=== PATIENT | female | born 1985 | race Two or more races ===

== ENCOUNTER 2018-09-09 10:06 | Inpatient (IN) | payer MEDICAID ==
[2018-09-09] MEDS ORDERED: OXYTOCIN 10 UNIT/ML VIAL IM ONE (10:20)
[2018-09-09] MEDS ORDERED: HYDROCORTISONE 1% CREAM 28 GM TUBE PR PRN (10:54)
[2018-09-09 11:51] LABS: BASOPHILS % (AUTO) 0.6 %; EOSINOPHILS # (AUTO) 0.1 10^3/uL (0.0-0.7); HGB - HEMOGLOBIN 11.9 g/dL (12.0-16.0); LYMPHOCYTES # (AUTO) 1.2 10^3/uL (1.5-3.5); LYMPHOCYTES % (AUTO) 14.3 %; MEAN CORPUSCULAR HEMOGLOBIN 30.4 pg (27.0-31.0); MEAN CORPUSCULAR HGB CONC 34.5 g/dL (32.0-36.0); MEAN CORPUSCULAR VOLUME 88.1 fL (81.0-99.0); MEAN PLATELET VOLUME 8.3 fL (7.9-10.8); MONOCYTES # (AUTO) 0.7 10^3/uL (0.0-1.0); MONOCYTES % (AUTO) 7.6 %; NEUTROPHILS # (AUTO) 6.7 10^3/uL (1.5-6.6); NEUTROPHILS % (AUTO) 76.5 %; PLT - PLATELET COUNT 253 10^3/uL (130-450); RED BLOOD COUNT 3.93 10^6/uL (4.20-5.40); RED CELL DISTRIBUTION WIDTH 13.4 % (12.0-15.0); WHITE BLOOD COUNT 8.7 x10^3/uL (4.8-10.8)
[2018-09-09] MEDS: ACETAMINOPHEN 500 MG TABLET PO SCH ×2 (13:58→21:57)
[2018-09-09] MEDS: IBUPROFEN 600 MG TABLET PO SCH ×2 (13:59→19:56)
--- NOTE | 2018-09-09 15:35 | DELIVERY NOTE ---
Delivery Note - Labor Labor: positive: Spontaneous, Other (Fragmented and incomplete obstetric care; GBS bacteruria; rapid delivery in progress) - Infant Delivery Method Infant Delivery Method: positive: Spontaneous vaginal delivery (Rapid second stage of labor) - Presentation Presentation: positive: Vertex - Nuchal Cord Nuchal Cord: positive: None - Anesthetic Anesthetic Type: - Amniotic Fluid Description Amniotic Fluid Description: positive: Clear - Episiotomy Type Episiotomy Type: positive: None - Laceration Laceration: positive: None - Delivery Outcome Delivery Outcome: positive: Livebirth - [place]: positive: Placed in direct skin contact with mother, Bulb syringe, Stimulated, Warmed [place] sex: positive: Female ( weight =7 pounds 5.2 ounces; Apgars 9/9) - Cord Cord: positive: 3 vessels - Placenta Placenta: positive: Intact (Grade 2 without evidence of abruption or infection) - Estimated Blood Loss Estimated Blood Loss (in cc): 250 - Delivery Comments (Free Text/Narrative) Delivery Comments (Free Text/Narrative): Predelivery diagnosis; apparent term , fragmented and incomplete obstetric care, GBS bacteria, grand multipara with rapid delivery Postdelivery diagnosis: Same as above workup ongoing 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 Leonard is a 33-year-old grand multipara who dropped into L&D during the second stage of labor. She had a small card from a [place] clinic that had some basic labs. She had not had any visit since 29 weeks. She states she had a initial dating ultrasound however this was not recorded. Patient arrived unannounced and was in the advanced stages of labor. Initial nursing check was complete and +2 station with involuntary pushing. I was called from the office and came immediately. Approximately 30 seconds before delivery membranes ruptured with clear fluid and the labor further accelerated. From the time of presentation to delivery was 3.5 minutes according to the EFM tracing. I entered the room & gloved as the patient crowned. Cora Valenzuela and Shirlene Ribeiro RN were at the bedside stabilizing the peritoneum. The delivery was done as a team. Delivery was rapid without any shoulder difficulty. Cord was doubly clamped and transected. Cord cord blood sample was taken. There was no cord involvement noted. Placenta was delivered spontaneously intact. Uterus responded well to massage and 10 units of IM Pitocin. Total blood loss was 250. Female reproductive tract was inspected. There were no vulvar lesions or wounds. The vagina had evidence of prior deep lacerations and mismatch of the hymen. There were no fresh wounds. Cervix was visualized intact. Mother and child bonded well. Post delivery physical examination was done. Obstetric labs and TB testing were ordered. Patient is known to be positive GBS bacteria and therefore GBS positive.
[2018-09-09 16:33] LABS: BILIRUBIN,URINE NEGATIVE (NEGATIVE); GLUCOSE, URINE (UA) NEGATIVE (NEGATIVE); KETONES,URINE (UA) NEGATIVE (NEGATIVE); LEUKOCYTE ESTERASE, URINE NEGATIVE (NEGATIVE); NITRITE,URINE NEGATIVE (NEGATIVE); OCCULT BLOOD,URINE LARGE (NEGATIVE); PH,URINE 7.5 PH (5.0-7.5); PROTEIN,URINE 30 mg/dL (NEGATIVE); UROBILINOGEN,URINE 0.2 (NORMAL) E.U./dL (NORMAL)
[2018-09-09 16:34] LABS: BACTERIA,URINE None Seen /HPF (None Seen); CLARITY,URINE BLOODY (CLEAR); RBC,URINE TNTC /HPF (0-5); SQUAMOUS EPITHELIAL CELL,UR NONE SEEN (<= Few)
[2018-09-09] MEDS ORDERED: OXYTOCIN 10 UNIT/ML VIAL ONE (16:38)
[2018-09-09] MEDS: DOCUSATE SODIUM 100 MG CAPSULE PO SCH (20:35)
--- NOTE | 2018-09-09 20:46 | DELIVERY NOTE ---
Delivery Note - Labor Labor: positive: Spontaneous - Delivery Method Delivery Method: positive: Vacuum assist - Cervical Ripening Method Cervical Ripening Method: positive: Misoprostil - Presentation Presentation: positive: Vertex, ROP - right occiput posterior - Nuchal Cord Nuchal Cord: positive: None - Anesthetic Anesthetic: positive: Lidocaine - 1% plain Volume: positive: Other (25 cc) - Amniotic Fluid Description Amniotic Fluid Description: positive: Clear - Vacuum Use Indication for Vacuum Use: positive: Suspicion of immediate or potential compromise Type of Vacuum Cup: positive: Cup: Rigid Number of pop-offs: 1 - Episiotomy Type Episiotomy Type: positive: None - Laceration Laceration: positive: 2nd degree - Suture Suture Type: positive: Vicryl Suture Size: positive: 2-0, 3-0 - Delivery Outcome Delivery Outcome: positive: Livebirth - [place] : positive: Placed in direct skin contact with mother, Suctioned, Bulb syringe, Warmer used [place] sex: positive: Male - Cord Cord: positive: 3 vessels - Placenta Placenta: positive: Intact - Estimated Blood Loss Estimated Blood Loss (in cc): 400 - Post Delivery Events Post Delivery Events: positive: No post delivery events
--- NOTE | 2018-09-10 01:22 | HISTORY & PHYSICAL EXAMINATION ---
DATE OF SERVICE: 09/09/2018 Physician: Torrye Lorenzana MD DIAGNOSIS: Drop-in delivery, with fragmented care, GBS positive urine, rapid delivery. HISTORY OF PRESENT ILLNESS: This evaluation was done immediately after delivery with family member doing Uzbek translation. Patient is a 33-year-old Kuwaiti, 6, para 5-0-0-5 woman who presented to labor and delivery in active labor, pushing and delivered shortly after. Reference delivery note. She denies rupture of membranes; they ruptured shortly before delivery with clear fluid. She denies signs or symptoms consistent with -induced hypertension. She has had no recent fevers, chills or illness. She had some care at the [facility]. LMP is 12/14/2017, yielding EDC of 09/20/2018. She states that there was an ultrasound done earlier in her . Thirteen-week ultrasound yielded an EDC of 09/21/2018. BASIC LABORATORY STUDIES: Blood type O positive, antibody screen negative, hepatitis B surface antigen negative, RPR negative, HIV negative, rubella immune. Baseline hemoglobin 12.3 . Glycosylated hemoglobin 5.5. Urine culture positive for GBS. GC and chlamydia negative. Last encounter was at 29 weeks. At that time, GBS-positive bacteria was found which was treated with amoxicillin. PAST MEDICAL HISTORY: Patient denies chronic disease history such as diabetes, hypertension. She denies tuberculosis. ALLERGIES: NO KNOWN DRUG ALLERGIES. MEDICATIONS: vitamins. SOCIAL HISTORY: Difficult to communicate. Uncertain what family status is. Denies drug, tobacco or alcohol use. FAMILY HISTORY: Denies malformation or inheritable disease. REVIEW OF SYSTEMS GENERAL: No recent fevers, chills or night sweats. HEENT: Negative. CARDIAC: Negative. PULMONARY: Negative. GASTROINTESTINAL: Negative. GENITOURINARY: Negative. MUSCULOSKELETAL: Negative. NEUROLOGIC: Negative. PSYCHOLOGIC: Negative. PHYSICAL EXAMINATION GENERAL: Patient just delivered and is still recovering. Alert, oriented, cooperative. VITAL SIGNS: Temperature 98.1, pulse 64, blood pressure 109/58, 100/64, respiratory rate between 15 and 18, pulse oximetry 99. HEENT: Dentition in adequate repair. NECK: Supple. No thyromegaly. LUNGS: Clear to auscultation. CARDIAC: Regular. No murmur. No gallop. BREASTS: Everted nipples. No evident masses. Now nursing well. ABDOMEN: Truncal obesity. No hepatosplenomegaly. GENITOURINARY: Uterus 18- to 17-week size, firm, nontender. Pelvic exam: External genitalia, no lesions. Vagina: Obvious prior tears with malunion of hymenal ring; no current tears. Lochia rubra. Cervix visualized, intact. EXTREMITIES: Multiple varicosities. No calf tenderness. Normal range of motion. NEUROLOGIC: Grossly intact. Patellar reflexes equal. LABORATORY DATA: Baseline hemoglobin 11.9 , white count 8.7, platelets 253. labs drawn, TB test drawn. ASSESSMENT: Patient is a drop-in delivery and has a language barrier. Basic facts of her medical history have been ascertained. Some uncertainty as to living situation and welfare of prior children. Patient will require social work consultation. PLAN 1. Repeat a CBC in the morning. 2. business services vice president consultation. 3. Supportive care. 4. Positive GBS status; therefore, longer hospitalization is anticipated. Discussed the case with Dr. Olivas of Pediatrics. TD: 09/09/2018 19:35 MTDD
[2018-09-10] MEDS: IBUPROFEN 600 MG TABLET PO SCH ×5 (02:12→22:42)
[2018-09-10] MEDS: ACETAMINOPHEN 500 MG TABLET PO SCH ×3 (05:48→19:51)
[2018-09-10] MEDS: DOCUSATE SODIUM 100 MG CAPSULE PO SCH ×2 (08:17→19:51)
[2018-09-10 09:05] LABS: BASOPHILS % (AUTO) 0.6 %; EOSINOPHILS # (AUTO) 0.2 10^3/uL (0.0-0.7); EOSINOPHILS % (AUTO) 2.3 %; HGB - HEMOGLOBIN 10.5 g/dL (12.0-16.0); LYMPHOCYTES # (AUTO) 1.9 10^3/uL (1.5-3.5); LYMPHOCYTES % (AUTO) 25.2 %; MEAN CORPUSCULAR HEMOGLOBIN 30.3 pg (27.0-31.0); MEAN CORPUSCULAR HGB CONC 34.3 g/dL (32.0-36.0); MEAN CORPUSCULAR VOLUME 88.4 fL (81.0-99.0); MEAN PLATELET VOLUME 7.6 fL (7.9-10.8); MONOCYTES # (AUTO) 0.5 10^3/uL (0.0-1.0); MONOCYTES % (AUTO) 6.7 %; NEUTROPHILS % (AUTO) 65.2 %; PLT - PLATELET COUNT 229 10^3/uL (130-450); RED BLOOD COUNT 3.48 10^6/uL (4.20-5.40); RED CELL DISTRIBUTION WIDTH 13.9 % (12.0-15.0); WHITE BLOOD COUNT 7.7 x10^3/uL (4.8-10.8)
--- NOTE | 2018-09-10 12:09 | PROVIDER PROGRESS NOTE ---
Subjective - Prog Note Date Prog Note Date: 09/10/18 Prog Note Time: 08:15 - Subjective Pt reports feeling: Improved Subjective: Patient communicates through family member translating. She states she has no fevers chills but notes uterine cramping. Her pain is controlled. No excessive bleeding reported. Objective - Vital Signs/Intake & Output Vital Signs: Vital Signs x48h Temp Pulse Resp BP BP Pulse Ox 09/10/18 10:50 98.6 F 73 18 110/58 L 96 09/10/18 08:15 98.1 F 67 18 127/68 98 09/10/18 04:57 98.4 F 67 22 112/71 98 Intake & Output: Intake & Output 09/07/18 09/08/18 09/09/18 09/10/18 23:59 23:59 23:59 23:59 Output Total 1400 Balance -1400 - Lab Results Fish Bones: 09/10/18 09:00 Other Labs: Lab Results x24hrs 09/10/18 09/09/18 09/09/18 Range/Units 09:00 16:12 12:00 WBC 7.7 (4.8-10.8) x10^3/uL RBC 3.48 L (4.20-5.40) 10^6/uL Hgb 10.5 L (12.0-16.0) g/dL Hct 30.7 L (37.0-47.0) % MCV 88.4 (81.0-99.0) fL MCH 30.3 (27.0-31.0) pg MCHC 34.3 (32.0-36.0) g/dL RDW 13.9 (12.0-15.0) % Plt Count 229 (130-450) 10^3/uL MPV 7.6 L (7.9-10.8) fL Neut # (Auto) 5.0 (1.5-6.6) 10^3/uL Lymph # (Auto) 1.9 (1.5-3.5) 10^3/uL [place] # (Auto) 0.5 (0.0-1.0) 10^3/uL Eos # (Auto) 0.2 (0.0-0.7) 10^3/uL Baso # (Auto) 0.0 (0.0-0.1) 10^3/uL Absolute Nucleated RBC 0.00 x10^3/uL Nucleated RBC % 0.0 /100WBC Urine Color RED/BLOODY Urine Clarity BLOODY (CLEAR) Urine pH 7.5 (5.0-7.5) PH Ur Specific [place] 1.020 (1.002-1.030) Urine Protein 30 H (NEGATIVE) mg/dL Urine Glucose (UA) NEGATIVE (NEGATIVE) mg/dL Urine Ketones NEGATIVE (NEGATIVE) mg/dL Urine Occult Blood LARGE H (NEGATIVE) Urine Nitrite NEGATIVE (NEGATIVE) Urine Bilirubin NEGATIVE (NEGATIVE) Urine Urobilinogen 0.2 (NORMAL) (NORMAL) E.U./dL Ur Leukocyte Esterase NEGATIVE (NEGATIVE) Urine RBC TNTC H (0-5) /HPF Urine WBC 0-3 (0-5) /HPF Ur Squamous Epith Cells NONE SEEN (<= Few) Urine Bacteria None Seen (None Seen) /HPF Ur Microscopic Review INDICATED Urine Culture Comments NOT INDICATED Rubella IgG Antibody IU/mL Blood Type Blood Type Recheck O POSITIVE Antibody Screen 09/09/18 09/09/18 Range/Units 11:38 11:38 WBC (4.8-10.8) x10^3/uL RBC (4.20-5.40) 10^6/uL Hgb (12.0-16.0) g/dL Hct (37.0-47.0) % MCV (81.0-99.0) fL MCH (27.0-31.0) pg MCHC (32.0-36.0) g/dL RDW (12.0-15.0) % Plt Count (130-450) 10^3/uL MPV (7.9-10.8) fL Neut # (Auto) (1.5-6.6) 10^3/uL Lymph # (Auto) (1.5-3.5) 10^3/uL [place] # (Auto) (0.0-1.0) 10^3/uL Eos # (Auto) (0.0-0.7) 10^3/uL Baso # (Auto) (0.0-0.1) 10^3/uL Absolute Nucleated RBC x10^3/uL Nucleated RBC % /100WBC Urine Color Urine Clarity (CLEAR) Urine pH (5.0-7.5) PH Ur Specific [place] (1.002-1.030) Urine Protein (NEGATIVE) mg/dL Urine Glucose (UA) (NEGATIVE) mg/dL Urine Ketones (NEGATIVE) mg/dL Urine Occult Blood (NEGATIVE) Urine Nitrite (NEGATIVE) Urine Bilirubin (NEGATIVE) Urine Urobilinogen (NORMAL) E.U./dL Ur Leukocyte Esterase (NEGATIVE) Urine RBC (0-5) /HPF Urine WBC (0-5) /HPF Ur Squamous Epith Cells (<= Few) Urine Bacteria (None Seen) /HPF Ur Microscopic Review Urine Culture Comments Rubella IgG Antibody 119.9 IU/mL Blood Type O POSITIVE Blood Type Recheck Antibody Screen NEGATIVE Physical Exam - Physical Exam General: positive: No acute distress, Alert HEENT: positive: Moist mucous membranes Neck: positive: Supple w/out meningeal sx Abdomen: positive: Normal Bowel sounds, Other (No tenderness noted) Female : positive: Vaginal Bleeding (Lochia rubra not on file reported by nursing), Enlarged uterus (Uterus enlarged to 17 weeks nontender) Extremities: positive: No pedal edema, Other (Varicosities) Skin: positive: Warm and dry Assessment/Plan - Assessment/Plan Assessment: Patient recovering as expected from 6 delivery. No obstetrical complications needed. Need to explore her state of mood more thoroughly with a director medical affairs. shared services and outsourcing manager consultation appreciated Plan: GBS positive not treated in labor requires a 48 hours of observation. Pediatrics does not intend to discharge infant until tomorrow. Will continue our social workup.
[2018-09-10 12:53] LABS: HEPATITIS B SURFACE ANTIGEN NON-REACTIVE (NON-REACTIVE)
[2018-09-10 14:21] LABS: HIV AG/AB 4TH GEN NON-REACTIVE (NON-REACTIVE)
[2018-09-11] MEDS: IBUPROFEN 600 MG TABLET PO SCH ×2 (05:04→08:48)
[2018-09-11] MEDS: ACETAMINOPHEN 500 MG TABLET PO SCH ×2 (05:04→08:48)
--- NOTE | 2018-09-11 06:22 | DISCHARGE SUMMARY ---
Physician: Torrey Lorenzana MD DATE OF ADMISSION: 09/09/2018 DATE OF DISCHARGE: DIAGNOSES 1. Drop in delivery with fragmented care. 2. GBS bacteria. 3. Rapid delivery. PROCEDURE: Vaginal delivery over intact perineum of a living female infant. COMPLICATIONS: None. HISTORY: Milena Pineda is a 33-year-old Guinean 6, para 6,0,0,6 woman (now), who pr esented to labor and delivery in active labor pushing and delivered the shortly thereafter. T he patient had some care in the [facility], but her last visit was at 29 weeks. She ini tially moved to [place] and then finally to [facility]. She had not accessed care. BASELINE LABS: Blood type O positive, antibody screen negative, hepatitis B surface antigen negative , RPR negative, HIV negative, rubella immune, glycosylated hemoglobin 5.5, normal. Urine culture pos itive for GBS. GC and chlamydia negative. Initial due date confirmed by ultrasound, her first trimester ultrasound. Anticipated due date is . HOSPITAL COURSE: The patient presented to labor and delivery and within 3 minutes, delivered. Rojas garcia was without laceration and uneventful. Reference delivery note. Total blood loss was 250. Moth er and child and father all bonded together well. Post-delivery, social work helped ascertain the patient was employed, had a stable living situation, and facilitated her accessing Mail Superintendent. Due to the GBS positive urine without prophylactic an tibiotics, the patient was obligated to stay for 48 hours. Mother nursed well. On hospital day #2, patient and were ready for discharge. Post-delivery instructions were giv en in Latvian. The patient will followup in 2 weeks at the [facility]. DISCHARGE MEDICATIONS 1. vitamins and iron. 2. Motrin [id number] for pain Predelivery diagnosis was 11.9. Post-delivery 10.5, white count 8.7 and 7.7, respectively. This is a draft, and I will verify this at the time of discharge. TD: 09/10/2018 19:08
--- NOTE | 2018-09-11 07:39 | Discharge Plan ---
Discharge Plan Disposition: 01 Home, Self Care Condition: Good Diet: Regular Activity Restrictions: Activity as Tolerated Shower Restrictions: No Driving Restrictions: No Weight Bearing: Full Weight No Smoking: If you smoke, Please STOP! Call for help. Follow-up with: Torrey Lorenzana MD [Provider Admit Priv/Credential] -
[2018-09-11] MEDS: DOCUSATE SODIUM 100 MG CAPSULE PO SCH (08:48)
[2018-09-11 17:16] VITALS: BP 110/60
--- NOTE | 2018-09-11 19:00 | Labor Flowsheet ---
Labor Flowsheet Datetime Report Generated by CPN: 09/11/2018 19:00 Datetime: 09/11/2018 08:45 VITAL SIGNS NBP Sys/Susy/Mean (mmHg): 106 : 68 : 77 Pulse: 89 Datetime: 09/11/2018 03:59 SpO2 (%): 97 Datetime: 09/09/2018 16:55 VAGINAL EXAM Membranes Ruptured Date/Time: 09/09/2018 10:19 Membranes Rupture Method: Spontaneous Amniotic Fluid Color: Heavy Meconium Amniotic Fluid Amount: Moderate Amniotic Fluid Odor: Normal MEDICATIONS Cervical Ripening Agents Other: none
== END 2018-09-11 16:45 | disposition home or self-care (01) | DRG 807 ==
LOC: WFO 10:06 → FBP 10:13 → EDBD 10:19 → FBP 10:19 → WFO 10:22
PROVIDERS: ADMIT Obstetrics & Gynecology; ATTEND Obstetrics & Gynecology
PROC: 10E0XZZ Delivery of Products of Conception, External Approach (ICD-10-PCS; principal; 2018-09-09)
DX: O99.820 Streptococcus B carrier state complicating pregnancy (principal); Z37.0 Single live birth; O62.3 Precipitate labor; O22.03 Varicose veins of lower extremity in pregnancy, third trimester; Z3A.38 38 weeks gestation of pregnancy
CPT/HCPCS: 36415; 81001; 81003; 81599; 85025; 86762; 86780; 86850; 86900; 86901; 87081; 87086; 87340; 87389; 87491; 87591; 99211

== ENCOUNTER 2019-05-30 15:45 | Outpatient (CLI) | payer MEDICAID ==
[2019-05-30 20:54] LABS: CANDIDA GROUP DNA POSITIVE (NEGATIVE); CANDIDA KRUSEI DNA NEGATIVE (NEGATIVE); TRICHOMONAS VAGINALIS DNA NEGATIVE (NEGATIVE)
== END 2019-05-30 23:59 | disposition home or self-care (01) ==
LOC: LAB.R 15:45
PROVIDERS: ATTEND Obstetrics & Gynecology
DX: Z34.82 Encounter for supervision of other normal pregnancy, second trimester (principal)
CPT/HCPCS: 87661; 87801

== ENCOUNTER 2019-06-02 10:22 | Outpatient (CLI) | payer MEDICAID ==
[2019-06-02 12:05] LABS: BASOPHILS % (AUTO) 0.6 %; EOSINOPHILS # (AUTO) 0.2 10^3/uL (0.0-0.7); EOSINOPHILS % (AUTO) 2.8 %; HGB - HEMOGLOBIN 11.5 g/dL (12.0-16.0); LYMPHOCYTES # (AUTO) 1.2 10^3/uL (1.5-3.5); MEAN CORPUSCULAR HGB CONC 33.2 g/dL (32.0-36.0); MEAN CORPUSCULAR VOLUME 93.3 fL (81.0-99.0); MEAN PLATELET VOLUME 9.1 fL (7.9-10.8); MONOCYTES # (AUTO) 0.5 10^3/uL (0.0-1.0); NEUTROPHILS # (AUTO) 5.2 10^3/uL (1.5-6.6); NEUTROPHILS % (AUTO) 71.8 %; PLT - PLATELET COUNT 282 10^3/uL (130-450); RED BLOOD COUNT 3.71 10^6/uL (4.20-5.40); WHITE BLOOD COUNT 7.2 x10^3/uL (4.8-10.8)
[2019-06-03 12:08] LABS: HEPATITIS C ANTIBODY NON-REACTIVE (NON-REACTIVE)
[2019-06-03 14:42] LABS: HIV AG/AB 4TH GEN NON-REACTIVE (NON-REACTIVE)
[2019-06-03 15:36] LABS: HEPATITIS B SURFACE ANTIGEN NON-REACTIVE (NON-REACTIVE)
== END 2019-06-02 10:23 | disposition home or self-care (01) ==
LOC: LAB 10:22
PROVIDERS: ATTEND Obstetrics & Gynecology
DX: Z34.82 Encounter for supervision of other normal pregnancy, second trimester (principal)
CPT/HCPCS: 36415; 81599; 82950; 85025; 86592; 86762; 86803; 86850; 86900; 86901; 87340; 87389

== ENCOUNTER 2019-06-06 12:54 | Outpatient (CLI) | payer MEDICAID ==
--- NOTE | 2019-06-06 16:26 | Ultrasound Report ---
Reason: SUPER OF NORMAL Procedure Date: 06/06/2019 Accession Number: [id number] / [id number] Procedure: US - OB Detailed Eval CPT Code: FULL RESULT: EXAM: COMPLETE OBSTETRICAL ULTRASOUND EXAM DATE: 06/06/2019 03:41 PM. CLINICAL HISTORY: anatomic survey. COMPARISON: None. TECHNIQUE: Real-time sonographic evaluation of the fetus performed by the teller head. Multiple financial representative static images were saved for review. Transabdominal imaging only. DATING: Established EGA 28 weeks 0 days with LANCE 08/29/2019 based on LMP. EGA 28 weeks 0 days with LANCE 08/29/2019 based on referring physician provided. EGA 28 weeks 0 days with LANCE 08/29/2019 based on the current ultrasound. GENERAL EVALUATION Hernández . Cardiac activity: 145 bpm. movement: Visualized. Presentation: Variable. Placenta: Anterior position. No evidence for previa. Umbilical cord: 3 vessel cord. Central placental cord origin. Amniotic fluid: Subjectively normal. MVP 7.3 cm. BIOMETRY Bi-Parietal Diameter (BPD): 7.0 cm, 28 weeks 2 days Head Circumference (HC): 25.7 cm, 27 weeks 6 days Abdominal Circumference (AC): 23.7 cm, 28 weeks 0 days Femur Length (FL): 5.2 cm, 28 weeks 0 days Estimated Weight: 1163 g, 38th percentile for 27 weeks 3 days. ANATOMY The intracranial structures, profile, face/nose/lips, spine, 4 chamber heart and right outflow tracts, stomach, abdominal wall and cord insertion, diaphragm, kidneys, bladder, and extremities were visualized and demonstrate no abnormality. The left ventricular outflow tract was not visualized. MATERNAL STRUCTURES Uterus: Unremarkable. Cervix: Long and closed. Transabdominal length 4.3 cm. Right ovary/adnexa: Unremarkable. Left ovary/adnexa: Unremarkable. Free fluid: None. IMPRESSION: 1. Hernández live intrauterine with gestational age 28 weeks 0 days based on current ultrasound. 2. Estimated weight is within expected limits for assigned dating. 3. The left ventricular outflow tract is not visualized. Consider follow-up ultrasound. Otherwise, normal anatomic abnormalities are identified. RADIA
== END 2019-06-06 12:55 | disposition home or self-care (01) ==
LOC: DI 12:54
PROVIDERS: ATTEND Obstetrics & Gynecology
DX: Z34.82 Encounter for supervision of other normal pregnancy, second trimester (principal)
CPT/HCPCS: 76811

== ENCOUNTER 2019-07-15 15:22 | Outpatient (CLI) | payer MEDICAID ==
[2019-07-15 16:58] LABS: HGB - HEMOGLOBIN 10.8 g/dL (12.0-16.0); MEAN CORPUSCULAR HEMOGLOBIN 29.9 pg (27.0-31.0); MEAN CORPUSCULAR HGB CONC 32.6 g/dL (32.0-36.0); MEAN CORPUSCULAR VOLUME 91.7 fL (81.0-99.0); MEAN PLATELET VOLUME 9.2 fL (7.9-10.8); RED BLOOD COUNT 3.61 10^6/uL (4.20-5.40); RED CELL DISTRIBUTION WIDTH 12.7 % (12.0-15.0); WHITE BLOOD COUNT 7.1 x10^3/uL (4.8-10.8)
[2019-07-15 17:16] LABS: ALBUMIN 2.9 g/dL (3.2-5.5); BILIRUBIN,DIRECT 0.1 mg/dL (0.1-0.5); BILIRUBIN,TOTAL 0.4 mg/dL (0.2-1.0); TOTAL PROTEIN 6.8 g/dL (6.7-8.2)
== END 2019-07-15 15:23 | disposition home or self-care (01) ==
LOC: LAB 15:22
PROVIDERS: ATTEND Obstetrics & Gynecology
DX: Z34.83 Encounter for supervision of other normal pregnancy, third trimester (principal)
CPT/HCPCS: 36415; 80076; 82950; 85027

== ENCOUNTER 2019-08-08 15:32 | Outpatient (CLI) | payer MEDICAID | END 2019-08-08 23:59 | disposition home or self-care (01) | LOC: LAB.R 15:32 | PROVIDERS: ATTEND Obstetrics & Gynecology | DX: Z34.83 Encounter for supervision of other normal pregnancy, third trimester (principal) | CPT/HCPCS: 87797 ==

== ENCOUNTER 2019-08-27 11:14 | Inpatient (IN) | payer MEDICAID ==
[2019-08-27] MEDS ORDERED: FAMOTIDINE 20 MG TABLET PO SCH (12:00)
[2019-08-27] MEDS ORDERED: MAG HYDROX/AL HYDROX/SIMETH 30 ML UDC PO SCH (12:00)
[2019-08-27] MEDS ORDERED: ACETAMINOPHEN 500 MG TABLET PO SCH (12:00)
[2019-08-27 12:15] LABS: BASOPHILS % (AUTO) 0.4 %; EOSINOPHILS # (AUTO) 0.1 10^3/uL (0.0-0.7); EOSINOPHILS % (AUTO) 1.9 %; HGB - HEMOGLOBIN 11.1 g/dL (12.0-16.0); LYMPHOCYTES # (AUTO) 1.4 10^3/uL (1.5-3.5); LYMPHOCYTES % (AUTO) 19.1 %; MEAN CORPUSCULAR HEMOGLOBIN 28.2 pg (27.0-31.0); MEAN CORPUSCULAR HGB CONC 32.6 g/dL (32.0-36.0); MEAN CORPUSCULAR VOLUME 86.5 fL (81.0-99.0); MEAN PLATELET VOLUME 10.7 fL (7.9-10.8); MONOCYTES # (AUTO) 0.6 10^3/uL (0.0-1.0); MONOCYTES % (AUTO) 8.1 %; NEUTROPHILS # (AUTO) 5.1 10^3/uL (1.5-6.6); NEUTROPHILS % (AUTO) 70.1 %; PLT - PLATELET COUNT 224 10^3/uL (130-450); RED BLOOD COUNT 3.93 10^6/uL (4.20-5.40); RED CELL DISTRIBUTION WIDTH 12.9 % (12.0-15.0); WHITE BLOOD COUNT 7.2 x10^3/uL (4.8-10.8)
[2019-08-27 12:27] LABS: CREATININE,URINE 127.7 mg/dL
[2019-08-27 12:28] LABS: ALBUMIN 2.7 g/dL (3.2-5.5); ALBUMIN/GLOBULIN RATIO 0.7 (1.0-2.2); BILIRUBIN,TOTAL 0.4 mg/dL (0.2-1.0); CALCIUM 8.8 mg/dL (8.5-10.3); CREATININE 0.4 mg/dL (0.4-1.0); TOTAL PROTEIN 6.6 g/dL (6.7-8.2)
[2019-08-27] MEDS ORDERED: CARBOPROST TROMETHAMINE 250 MCG/ML AMP IM PRN (13:53)
[2019-08-27] MEDS ORDERED: ONDANSETRON 4 MG/2 ML VIAL IVP PRN (13:53)
[2019-08-27] MEDS ORDERED: OXYTOCIN/DEXTROSE 5 % 30 UNIT/500 ML BAG IV PRN (13:53)
[2019-08-27] MEDS ORDERED: miSOPROStoL 200 MCG TABLET PR PRN (13:53)
[2019-08-27] MEDS ORDERED: fentaNYL 100 MCG/2 ML VIAL IVP PRN (13:53)
[2019-08-27] MEDS ORDERED: SODIUM CHLORIDE FLUSH 0.9% 10 ML SYRINGE IVP PRN (13:53)
[2019-08-27] MEDS ORDERED: LACTATED RINGERS 1,000 ML IV SCH (14:00)
[2019-08-27] MEDS ORDERED: AMPICILLIN 2 GM in SODIUM CHLORIDE 0.9% MINIBAG 100 ML IV SCH (14:30)
[2019-08-27] MEDS ORDERED: MAGNESIUM SULFATE IN WATER 20 GM/500 ML IV.SOLN IV SCH (14:39)
[2019-08-27 15:03] LABS: RUPTURE OF MEMBRANES PLUS NEGATIVE (NEGATIVE)
[2019-08-27] MEDS: MAGNESIUM SULFATE 2 GRAM 2 GM/50 ML BAG IV SCH ×2 (16:43→17:18)
[2019-08-27] MEDS ORDERED: SODIUM CHLORIDE FLUSH 0.9% 10 ML SYRINGE IVP SCH (17:00)
[2019-08-27] MEDS ORDERED: OXYTOCIN/DEXTROSE 5 % 30 UNIT/500 ML BAG IV SCH (18:00)
[2019-08-27 18:29] LABS: TRICHOMONAS VAGINALIS DNA NEGATIVE (NEGATIVE)
[2019-08-27] MEDS: AMPICILLIN 1 GM in SODIUM CHLORIDE 0.9% MINIBAG 100 ML IV SCH ×2 (18:29→22:34)
--- NOTE | 2019-08-27 19:22 | HISTORY & PHYSICAL EXAMINATION ---
DATE OF SERVICE: 08/27/2019 Physician: Leia Cheek MD CHIEF COMPLAINT: Labor pains. HISTORY OF PRESENT ILLNESS: The patient has had labor pains since this morning that have been increa sing in frequency and severity. She feels like this is a real labor. She has had some leaking of "w ater" since yesterday around 4 p.m. It has been both white and clear. It started yesterday and had not happened prior than that. It was not copious. No bleeding and no green discharge. Good m ovement. The patient complains of a 7/10 intensity headache on her left side only. This is new for her. She does not typically get headaches, and she has never had a one-sided headache in the past. She compla ins of radiating pain down to her right leg and foot that feels "like a headache," and has been new i n the past day. She had visual changes yesterday when standing after taking a bath. Those look like stars. She has not had any visual changes since that time. She is also complaining of "chest pain, " but when asked to demonstrate where the pain she points to her epigastric area. She further clarif ied that there is no pain below the ribs. This pain has been mostly present with contractions and is also new for her. PAST MEDICAL HISTORY: Negative. PAST SURGICAL HISTORY: Negative. MEDICATIONS: None. The patient has not been taking vitamins, as she says that they were no t called in, but they were. ALLERGIES: NO KNOWN DRUG ALLERGIES. SOCIAL HISTORY: No tobacco, alcohol or drug use. The father of the baby is the father of this pregn kristen and also her most recent , which was uncomplicated. OBSTETRICAL HISTORY: The patient is a G6, P5-0-0-5. Her first was in 2002. All of her childr en have been in the 7-pound range. All has been uncomplicated. The most recent included a very rapid delivery. She denies any history of elevated blood pressures or preeclampsia w ith her prior pregnancies. Dating reveals an LANCE of 08/29/2019 by last menstrual period, consistent with a 28-week ultrasound. Anatomy was normal, but the LVOT was not well seen. Her placenta was ant erior. She had an AGA fetus at her anatomy scan at the 38th percentile). Labs include blood type O positive, rubella immune, group B strep positive. She has not had gonorrhea, chlamydia screening thi s , nor has she received a Pap. I do not believe that she has received Tdap or influenza va ccines during her . PHYSICAL EXAMINATION VITAL SIGNS: Blood pressure is normal in the 100s over 60s. Other vital signs normal. She is afebr ile. GENERAL: She is alert and smiles occasionally, making appropriate eye contact. She also grimaces in pain and has to lightly breathe through some of her contractions. HEART: Regular rate and rhythm without murmurs. LUNGS: Clear to auscultation bilaterally. ABDOMEN: Soft, nontender, nondistended. The fetus is appropriate for gestational age by [place]. Ultrasound reveals a fetus in vertex presen tation with a normal amount of fluid surrounding it. The external female genitalia is normal. The p erineal body is absent. The patient's introitus is gaping. The patient did have a bit of thin water y fluid in the vagina mixed with more opaque and clumpy discharge. This is most consistent with a ye ast infection, but could also be leaking of fluid. Sterile vaginal examination was 3-4 cm dilated, 5 0% effaced, -2 station, medium and posterior. There is no lower extremity edema. Reflexes were 2+ b ilateral patellar. NST is category 1. [place] is not picking up well. The patient grimaces with a con traction anywhere from every 2 minutes to every 8. ASSESSMENT AND PLAN 1. A 34-year-old G6, P5-0-0-5, at 39 weeks and 5 days by last menstrual period, consistent with a 28 -week ultrasound, who presents with labor. Her labor will be observed. If she requires augmentation , then it will be given. She is unsure of what kind medications she might want to do for pain contro l. 2. wellbeing is reassuring with a category 1 NST. The baby is vertex and average for gestatio nal age with a normal anatomy scan. 3. She is group B strep positive, and she will receive ampicillin prophylaxis for this. She HAS NO KNOWN DRUG ALLERGIES. 4. Gonorrhea and chlamydia unknown and those were collected and sent to the lab. 5. She has an unknown status of rupture of membranes, but I think it is most likely that she has yea st vaginitis and an intact bag. AROM plus test was sent to further evaluate. 6. I do not believe that she has received a Tdap or a flu vaccine this . We will offer tho se . Also, she will need a Pap when she presents . 7. The patient presented complaining of both labor pains, as well as a significant headache and uppe r abdominal pain. Due to these findings, CBC, CMP and [id number] ratio were sent. Her pl atelets were normal, as were her AST, ALT and creatinine. However, her [id number] ratio w as 1.0, which is clearly abnormal. She has no edema and normal reflexes. Her headache is rated at a 7/10, and her headache and abdominal pain seemed to be present only when she is having a contraction . She had visual changes yesterday associated with position change, which is normal. I do feel like is going to be safest to give her magnesium sulfate for seizure prophylaxis. Although her presentat ion for preeclampsia would be atypical, she is having significant neurologic symptoms and so we will prophylax her. If her headache goes away and she has an otherwise normal course, we will stop the magnesium shortly after delivery. If anything is not normal, then we will continue to magne sium sulfate therapy for 24 hours . She was advised not to get up without nursing assistan ce. We will do hourly mag checks and hourly ins and outs, as well as frequent blood pressures. Keyur nguyen, the patient has never had preeclampsia in the past, and her last was with the same fat her of the baby and was uncomplicated. However, she did not receive care during this pregna ncy and rapidly delivered after presentation to the hospital, so it is difficult to ascertain whether or not that was entirely healthy or not. TD: 08/27/2019 14:15
--- NOTE | 2019-08-27 21:09 | PROVIDER PROGRESS NOTE ---
Objective - Vital Signs/Intake & Output Intake & Output: Intake & Output 08/24/19 08/25/19 08/26/19 08/27/19 23:59 23:59 23:59 23:59 Intake Total 307.499 Balance 307.499 - Lab Results Fish Bones: 08/27/19 12:04 08/27/19 12:04 Other Labs: Lab Results x24hrs 08/27/19 08/27/19 08/27/19 Range/Units 13:45 13:45 12:04 WBC (4.8-10.8) x10^3/uL RBC (4.20-5.40) 10^6/uL Hgb (12.0-16.0) g/dL Hct (37.0-47.0) % MCV (81.0-99.0) fL MCH (27.0-31.0) pg MCHC (32.0-36.0) g/dL RDW (12.0-15.0) % Plt Count (130-450) 10^3/uL MPV (7.9-10.8) fL Neut # (Auto) (1.5-6.6) 10^3/uL Lymph # (Auto) (1.5-3.5) 10^3/uL [place] # (Auto) (0.0-1.0) 10^3/uL Eos # (Auto) (0.0-0.7) 10^3/uL Baso # (Auto) (0.0-0.1) 10^3/uL Absolute Nucleated RBC x10^3/uL Nucleated RBC % /100WBC Sodium 135 (135-145) mmol/L Potassium 3.8 (3.5-5.0) mmol/L Chloride 105 (101-111) mmol/L Carbon Dioxide 21 (21-32) mmol/L Anion Gap 9.0 (6-13) BUN 9 (6-20) mg/dL Creatinine 0.4 (0.4-1.0) mg/dL Estimated GFR (MDRD) 183 (>89) Glucose 91 (70-100) mg/dL Calcium 8.8 (8.5-10.3) mg/dL Total Bilirubin 0.4 (0.2-1.0) mg/dL AST 21 (10-42) IU/L ALT 15 (10-60) IU/L Alkaline Phosphatase 160 H (42-121) IU/L Total Protein 6.6 L (6.7-8.2) g/dL Albumin 2.7 L (3.2-5.5) g/dL Globulin 3.9 (2.1-4.2) g/dL Albumin/Globulin Ratio 0.7 L (1.0-2.2) Urine Creatinine mg/dL Ur Total Protein Timed mg/dL Protein/Creatinin Ratio (<=0.2) Membranes Rupture NEGATIVE (NEGATIVE) Chlam trachomat DNA PCR NEGATIVE (NEGATIVE) N.gonorrhoeae DNA (PCR) NEGATIVE (NEGATIVE) T. vaginalis (PCR) NEGATIVE (NEGATIVE) Blood Type Antibody Screen 08/27/19 08/27/19 08/27/19 Range/Units 12:04 12:04 11:55 WBC 7.2 (4.8-10.8) x10^3/uL RBC 3.93 L (4.20-5.40) 10^6/uL Hgb 11.1 L (12.0-16.0) g/dL Hct 34.0 L (37.0-47.0) % MCV 86.5 (81.0-99.0) fL MCH 28.2 (27.0-31.0) pg MCHC 32.6 (32.0-36.0) g/dL RDW 12.9 (12.0-15.0) % Plt Count 224 (130-450) 10^3/uL MPV 10.7 (7.9-10.8) fL Neut # (Auto) 5.1 (1.5-6.6) 10^3/uL Lymph # (Auto) 1.4 L (1.5-3.5) 10^3/uL [place] # (Auto) 0.6 (0.0-1.0) 10^3/uL Eos # (Auto) 0.1 (0.0-0.7) 10^3/uL Baso # (Auto) 0.0 (0.0-0.1) 10^3/uL Absolute Nucleated RBC 0.00 x10^3/uL Nucleated RBC % 0.0 /100WBC Sodium (135-145) mmol/L Potassium (3.5-5.0) mmol/L Chloride (101-111) mmol/L Carbon Dioxide (21-32) mmol/L Anion Gap (6-13) BUN (6-20) mg/dL Creatinine (0.4-1.0) mg/dL Estimated GFR (MDRD) (>89) Glucose (70-100) mg/dL Calcium (8.5-10.3) mg/dL Total Bilirubin (0.2-1.0) mg/dL AST (10-42) IU/L ALT (10-60) IU/L Alkaline Phosphatase (42-121) IU/L Total Protein (6.7-8.2) g/dL Albumin (3.2-5.5) g/dL Globulin (2.1-4.2) g/dL Albumin/Globulin Ratio (1.0-2.2) Urine Creatinine 127.7 mg/dL Ur Total Protein Timed 130 mg/dL Protein/Creatinin Ratio 1.0 H (<=0.2) Membranes Rupture (NEGATIVE) Chlam trachomat DNA PCR (NEGATIVE) N.gonorrhoeae DNA (PCR) (NEGATIVE) T. vaginalis (PCR) (NEGATIVE) Blood Type O POSITIVE Antibody Screen NEGATIVE Assessment/Plan - Problem List (1) Active labor at term Impression: Headache and upper abdominal pain are completely gone. Ate 2 large meals. BPs 100/60s. Category 1 tracing, toco q10min. Pitocin augmentation started due to infrequent UCs. Magnesium turned off as her symptoms are gone and her BPs are so normal. If her symptoms of MERCADO or upper abd pain resume then will resume mag. Ampicillin for GBS +. Anticipate .
[2019-08-28] MEDS: AMPICILLIN 1 GM in SODIUM CHLORIDE 0.9% MINIBAG 100 ML IV SCH (02:37)
[2019-08-28] MEDS ORDERED: ROPIVACAINE 0.2% 0 MG/0 ML BAG EP ONE (02:57)
[2019-08-28] MEDS ORDERED: KETOROLAC 30 MG/ML VIAL IVP PRN (03:18)
[2019-08-28] MEDS ORDERED: ONDANSETRON ODT 4 MG TABLET TL PRN (03:19)
[2019-08-28] MEDS ORDERED: WITCH HAZEL/GLYCERIN 1 PAD TOP PRN (03:19)
[2019-08-28] MEDS ORDERED: HYDROCORTISONE 1% CREAM 28 GM TUBE PR PRN (03:19)
[2019-08-28] MEDS ORDERED: TETANUS/DIPHTHERIA/PERTUSSIS 0.5 ML SYRINGE IM ONE (03:19)
[2019-08-28] MEDS ORDERED: FLU VACC QS2019-20(6MOS UP)/PF 60 MCG/0.5 ML SYRINGE IM ONE ×3 (03:21→16:00)
[2019-08-28] MEDS ORDERED: SODIUM CHLORIDE FLUSH 0.9% 10 ML SYRINGE ONE (03:30)
[2019-08-28] MEDS: ACETAMINOPHEN 500 MG TABLET PO SCH ×2 (03:31→16:53)
[2019-08-28 03:35] LABS: BASOPHILS % (AUTO) 0.3 %; EOSINOPHILS # (AUTO) 0.1 10^3/uL (0.0-0.7); EOSINOPHILS % (AUTO) 1.7 %; HGB - HEMOGLOBIN 10.5 g/dL (12.0-16.0); LYMPHOCYTES # (AUTO) 1.8 10^3/uL (1.5-3.5); LYMPHOCYTES % (AUTO) 31.7 %; MEAN CORPUSCULAR HEMOGLOBIN 27.4 pg (27.0-31.0); MEAN CORPUSCULAR HGB CONC 31.9 g/dL (32.0-36.0); MEAN CORPUSCULAR VOLUME 85.9 fL (81.0-99.0); MONOCYTES # (AUTO) 0.5 10^3/uL (0.0-1.0); MONOCYTES % (AUTO) 7.8 %; NEUTROPHILS # (AUTO) 3.3 10^3/uL (1.5-6.6); PLT - PLATELET COUNT 212 10^3/uL (130-450); RED BLOOD COUNT 3.83 10^6/uL (4.20-5.40); WHITE BLOOD COUNT 5.7 x10^3/uL (4.8-10.8)
[2019-08-28 03:47] LABS: ALBUMIN 2.5 g/dL (3.2-5.5); ALBUMIN/GLOBULIN RATIO 0.6 (1.0-2.2); ALKALINE PHOSPHATASE 171 IU/L (42-121); ALT ALANINE AMINOTRANSFERASE 15 IU/L (10-60); AST ASPARTATE AMINOTRANSFERASE 22 IU/L (10-42); BILIRUBIN,TOTAL < 0.2 mg/dL (0.2-1.0); BUN - BLOOD UREA NITROGEN 9 mg/dL (6-20); CALCIUM 8.4 mg/dL (8.5-10.3); CARBON DIOXIDE - CO2 21 mmol/L (21-32); CHLORIDE 104 mmol/L (101-111); CREATININE 0.5 mg/dL (0.4-1.0); GFR - MDRD 141 (>89); GLUCOSE 136 mg/dL (70-100); SODIUM 135 mmol/L (135-145); TOTAL PROTEIN 6.5 g/dL (6.7-8.2)
--- NOTE | 2019-08-28 03:51 | PROVIDER PROGRESS NOTE ---
Objective - Vital Signs/Intake & Output Intake & Output: Intake & Output 08/25/19 08/26/19 08/27/19 08/28/19 23:59 23:59 23:59 23:59 Intake Total 407.499 Balance 407.499 - Lab Results Fish Bones: 08/28/19 03:25 08/28/19 03:25 Other Labs: Lab Results x24hrs 08/28/19 08/28/19 08/27/19 Range/Units 03:25 03:25 13:45 WBC 5.7 (4.8-10.8) x10^3/uL RBC 3.83 L (4.20-5.40) 10^6/uL Hgb 10.5 L (12.0-16.0) g/dL Hct 32.9 L (37.0-47.0) % MCV 85.9 (81.0-99.0) fL MCH 27.4 (27.0-31.0) pg MCHC 31.9 L (32.0-36.0) g/dL RDW 13.0 (12.0-15.0) % Plt Count 212 (130-450) 10^3/uL MPV 11.0 H (7.9-10.8) fL Neut # (Auto) 3.3 (1.5-6.6) 10^3/uL Lymph # (Auto) 1.8 (1.5-3.5) 10^3/uL [place] # (Auto) 0.5 (0.0-1.0) 10^3/uL Eos # (Auto) 0.1 (0.0-0.7) 10^3/uL Baso # (Auto) 0.0 (0.0-0.1) 10^3/uL Absolute Nucleated RBC 0.00 x10^3/uL Nucleated RBC % 0.0 /100WBC Sodium 135 (135-145) mmol/L Potassium 3.7 (3.5-5.0) mmol/L Chloride 104 (101-111) mmol/L Carbon Dioxide 21 (21-32) mmol/L Anion Gap 10.0 (6-13) BUN 9 (6-20) mg/dL Creatinine 0.5 (0.4-1.0) mg/dL Estimated GFR (MDRD) 141 (>89) Glucose 136 H (70-100) mg/dL Calcium 8.4 L (8.5-10.3) mg/dL Total Bilirubin < 0.2 L (0.2-1.0) mg/dL AST 22 (10-42) IU/L ALT 15 (10-60) IU/L Alkaline Phosphatase 171 H (42-121) IU/L Total Protein 6.5 L (6.7-8.2) g/dL Albumin 2.5 L (3.2-5.5) g/dL Globulin 4.0 (2.1-4.2) g/dL Albumin/Globulin Ratio 0.6 L (1.0-2.2) Urine Creatinine mg/dL Ur Total Protein Timed mg/dL Protein/Creatinin Ratio (<=0.2) Membranes Rupture NEGATIVE (NEGATIVE) Chlam trachomat DNA PCR (NEGATIVE) N.gonorrhoeae DNA (PCR) (NEGATIVE) T. vaginalis (PCR) (NEGATIVE) Blood Type Antibody Screen 08/27/19 08/27/19 08/27/19 Range/Units 13:45 12:04 12:04 WBC 7.2 (4.8-10.8) x10^3/uL RBC 3.93 L (4.20-5.40) 10^6/uL Hgb 11.1 L (12.0-16.0) g/dL Hct 34.0 L (37.0-47.0) % MCV 86.5 (81.0-99.0) fL MCH 28.2 (27.0-31.0) pg MCHC 32.6 (32.0-36.0) g/dL RDW 12.9 (12.0-15.0) % Plt Count 224 (130-450) 10^3/uL MPV 10.7 (7.9-10.8) fL Neut # (Auto) 5.1 (1.5-6.6) 10^3/uL Lymph # (Auto) 1.4 L (1.5-3.5) 10^3/uL [place] # (Auto) 0.6 (0.0-1.0) 10^3/uL Eos # (Auto) 0.1 (0.0-0.7) 10^3/uL Baso # (Auto) 0.0 (0.0-0.1) 10^3/uL Absolute Nucleated RBC 0.00 x10^3/uL Nucleated RBC % 0.0 /100WBC Sodium 135 (135-145) mmol/L Potassium 3.8 (3.5-5.0) mmol/L Chloride 105 (101-111) mmol/L Carbon Dioxide 21 (21-32) mmol/L Anion Gap 9.0 (6-13) BUN 9 (6-20) mg/dL Creatinine 0.4 (0.4-1.0) mg/dL Estimated GFR (MDRD) 183 (>89) Glucose 91 (70-100) mg/dL Calcium 8.8 (8.5-10.3) mg/dL Total Bilirubin 0.4 (0.2-1.0) mg/dL AST 21 (10-42) IU/L ALT 15 (10-60) IU/L Alkaline Phosphatase 160 H (42-121) IU/L Total Protein 6.6 L (6.7-8.2) g/dL Albumin 2.7 L (3.2-5.5) g/dL Globulin 3.9 (2.1-4.2) g/dL Albumin/Globulin Ratio 0.7 L (1.0-2.2) Urine Creatinine mg/dL Ur Total Protein Timed mg/dL Protein/Creatinin Ratio (<=0.2) Membranes Rupture (NEGATIVE) Chlam trachomat DNA PCR NEGATIVE (NEGATIVE) N.gonorrhoeae DNA (PCR) NEGATIVE (NEGATIVE) T. vaginalis (PCR) NEGATIVE (NEGATIVE) Blood Type Antibody Screen 08/27/19 08/27/19 Range/Units 12:04 11:55 WBC (4.8-10.8) x10^3/uL RBC (4.20-5.40) 10^6/uL Hgb (12.0-16.0) g/dL Hct (37.0-47.0) % MCV (81.0-99.0) fL MCH (27.0-31.0) pg MCHC (32.0-36.0) g/dL RDW (12.0-15.0) % Plt Count (130-450) 10^3/uL MPV (7.9-10.8) fL Neut # (Auto) (1.5-6.6) 10^3/uL Lymph # (Auto) (1.5-3.5) 10^3/uL [place] # (Auto) (0.0-1.0) 10^3/uL Eos # (Auto) (0.0-0.7) 10^3/uL Baso # (Auto) (0.0-0.1) 10^3/uL Absolute Nucleated RBC x10^3/uL Nucleated RBC % /100WBC Sodium (135-145) mmol/L Potassium (3.5-5.0) mmol/L Chloride (101-111) mmol/L Carbon Dioxide (21-32) mmol/L Anion Gap (6-13) BUN (6-20) mg/dL Creatinine (0.4-1.0) mg/dL Estimated GFR (MDRD) (>89) Glucose (70-100) mg/dL Calcium (8.5-10.3) mg/dL Total Bilirubin (0.2-1.0) mg/dL AST (10-42) IU/L ALT (10-60) IU/L Alkaline Phosphatase (42-121) IU/L Total Protein (6.7-8.2) g/dL Albumin (3.2-5.5) g/dL Globulin (2.1-4.2) g/dL Albumin/Globulin Ratio (1.0-2.2) Urine Creatinine 127.7 mg/dL Ur Total Protein Timed 130 mg/dL Protein/Creatinin Ratio 1.0 H (<=0.2) Membranes Rupture (NEGATIVE) Chlam trachomat DNA PCR (NEGATIVE) N.gonorrhoeae DNA (PCR) (NEGATIVE) T. vaginalis (PCR) (NEGATIVE) Blood Type O POSITIVE Antibody Screen NEGATIVE Assessment/Plan - Problem List (1) Active labor at term Impression: Feeling better, MERCADO is gone, no other problems. PIH labs were normal. Will obs, no mag.
[2019-08-28] MEDS ORDERED: DIPHENOX/ATROPINE 2.5/0.025 MG TABLET PO PRN (04:33)
[2019-08-28] MEDS ORDERED: CARBOPROST TROMETHAMINE 250 MCG/ML AMP IM ONE (04:33)
[2019-08-28] MEDS ORDERED: DIPHENOX/ATROPINE 2.5/0.025 MG TABLET PO ONE (04:47)
[2019-08-28] MEDS ORDERED: OXYTOCIN/DEXTROSE 5 % 30 UNIT/500 ML BAG IV ONE (05:12)
--- NOTE | 2019-08-28 06:47 | PROCEDURE REPORT ---
DATE OF SERVICE: 08/28/2019 Physician: Leia Cheek MD PREPROCEDURE DIAGNOSES 1. Spontaneous labor at 39 weeks. 2. Proteinuria. 3. Headache. POSTPROCEDURE DIAGNOSES 1. Status post spontaneous vaginal delivery at term. 2. Headache. PROCEDURE: Spontaneous vaginal delivery on 08/28/2019. ESTIMATED BLOOD LOSS: 100 mL FINDINGS: Included a live born male, Apgars 8 at one minute and 9 at five minutes. Weight is pendin g. She had terminal meconium-stained fluid. There were no lacerations. LABOR COURSE: Patient was admitted with spontaneous labor at 3-4 cm. On admission, she had a signif icant headache and upper abdominal pain, but no tenderness. She had normal reflexes and normal blood pressures. Her PC ratio was 1.0, which is abnormal; but her AST, ALT and creatinine were normal. H er contractions spaced out to q.10 minutes and less frequent. This was while she was placed on magne sium for possible preeclampsia, seizure prophylaxis. Pitocin was started for augmentation. The candi ent rested and ate 2 large meals. Her headache spontaneously resolved, as did any upper abdominal pa in. Because of this and the questionable diagnosis of preeclampsia or not, her magnesium was turned off. She maintained having no symptoms throughout the rest of her labor and delivery. Blood pressur es were normal until she had an elevated one while crying out and pushing. Patient underwent AROM fo r clear fluid. She was assessed multiple times by this MD over the past 2 hours. Then, when MD was out of the room, she delivered the head spontaneously with a nurse in attendance. I was immediately in the room at that time. There was no nuchal cord. The shoulders and body were delivered without d ifficulty. The baby was placed on mom's abdomen and was warmed, dried and stimulated. The umbilical cord was left pulsating until it stopped. The cord was clamped x2 and cut. The Pitocin had been st arted following the delivery of the baby. Inspection revealed no lacerations. Cord blood was obtain ed off the placenta. Fundal massage yielded a firm uterus without blood or clot. Shortly following the delivery, patient complained of the headache being back. This time, it was a l ittle less at 6/10. On admission, it had been 7/10. Her blood pressures remained normal. Her urine output has been good throughout her labor. Stat CBC and CMP are being drawn now and we will make de terminations following those results. Otherwise, anticipate normal course in this is very experienced mom. She will be offered whooping cough and flu shots prior to discharge. Her gonorrhe a and chlamydia were unknown at the time of admission, and she tested negative for those. TD: 08/28/2019 03:35
--- NOTE | 2019-08-28 08:52 | PROVIDER PROGRESS NOTE ---
Objective - Vital Signs/Intake & Output Vital Signs: Vital Signs x48h Temp Pulse Resp BP Pulse Ox 08/28/19 06:15 97.7 F 49 L 16 108/71 99 08/28/19 05:16 69 16 128/77 08/28/19 05:07 64 16 136/79 H 08/28/19 04:45 51 L 18 118/93 H 08/28/19 04:30 77 16 105/71 97 08/28/19 04:20 53 L 16 117/67 98 08/28/19 04:00 51 L 16 109/59 L 98 08/28/19 03:45 51 L 16 108/63 58 L 08/28/19 03:30 56 L 16 111/65 99 08/28/19 03:20 65 16 118/70 98 08/28/19 03:15 58 L 18 126/85 H 99 Intake & Output: Intake & Output 08/25/19 08/26/19 08/27/19 08/28/19 23:59 23:59 23:59 23:59 Intake Total 407.499 Balance 407.499 - Lab Results Fish Bones: 08/28/19 03:25 08/28/19 03:25 Other Labs: Lab Results x24hrs 08/28/19 08/28/19 08/27/19 Range/Units 03:25 03:25 13:45 WBC 5.7 (4.8-10.8) x10^3/uL RBC 3.83 L (4.20-5.40) 10^6/uL Hgb 10.5 L (12.0-16.0) g/dL Hct 32.9 L (37.0-47.0) % MCV 85.9 (81.0-99.0) fL MCH 27.4 (27.0-31.0) pg MCHC 31.9 L (32.0-36.0) g/dL RDW 13.0 (12.0-15.0) % Plt Count 212 (130-450) 10^3/uL MPV 11.0 H (7.9-10.8) fL Neut # (Auto) 3.3 (1.5-6.6) 10^3/uL Lymph # (Auto) 1.8 (1.5-3.5) 10^3/uL [place] # (Auto) 0.5 (0.0-1.0) 10^3/uL Eos # (Auto) 0.1 (0.0-0.7) 10^3/uL Baso # (Auto) 0.0 (0.0-0.1) 10^3/uL Absolute Nucleated RBC 0.00 x10^3/uL Nucleated RBC % 0.0 /100WBC Sodium 135 (135-145) mmol/L Potassium 3.7 (3.5-5.0) mmol/L Chloride 104 (101-111) mmol/L Carbon Dioxide 21 (21-32) mmol/L Anion Gap 10.0 (6-13) BUN 9 (6-20) mg/dL Creatinine 0.5 (0.4-1.0) mg/dL Estimated GFR (MDRD) 141 (>89) Glucose 136 H (70-100) mg/dL Calcium 8.4 L (8.5-10.3) mg/dL Total Bilirubin < 0.2 L (0.2-1.0) mg/dL AST 22 (10-42) IU/L ALT 15 (10-60) IU/L Alkaline Phosphatase 171 H (42-121) IU/L Total Protein 6.5 L (6.7-8.2) g/dL Albumin 2.5 L (3.2-5.5) g/dL Globulin 4.0 (2.1-4.2) g/dL Albumin/Globulin Ratio 0.6 L (1.0-2.2) Urine Creatinine mg/dL Ur Total Protein Timed mg/dL Protein/Creatinin Ratio (<=0.2) Membranes Rupture NEGATIVE (NEGATIVE) Chlam trachomat DNA PCR (NEGATIVE) N.gonorrhoeae DNA (PCR) (NEGATIVE) T. vaginalis (PCR) (NEGATIVE) Blood Type Antibody Screen 08/27/19 08/27/19 08/27/19 Range/Units 13:45 12:04 12:04 WBC 7.2 (4.8-10.8) x10^3/uL RBC 3.93 L (4.20-5.40) 10^6/uL Hgb 11.1 L (12.0-16.0) g/dL Hct 34.0 L (37.0-47.0) % MCV 86.5 (81.0-99.0) fL MCH 28.2 (27.0-31.0) pg MCHC 32.6 (32.0-36.0) g/dL RDW 12.9 (12.0-15.0) % Plt Count 224 (130-450) 10^3/uL MPV 10.7 (7.9-10.8) fL Neut # (Auto) 5.1 (1.5-6.6) 10^3/uL Lymph # (Auto) 1.4 L (1.5-3.5) 10^3/uL [place] # (Auto) 0.6 (0.0-1.0) 10^3/uL Eos # (Auto) 0.1 (0.0-0.7) 10^3/uL Baso # (Auto) 0.0 (0.0-0.1) 10^3/uL Absolute Nucleated RBC 0.00 x10^3/uL Nucleated RBC % 0.0 /100WBC Sodium 135 (135-145) mmol/L Potassium 3.8 (3.5-5.0) mmol/L Chloride 105 (101-111) mmol/L Carbon Dioxide 21 (21-32) mmol/L Anion Gap 9.0 (6-13) BUN 9 (6-20) mg/dL Creatinine 0.4 (0.4-1.0) mg/dL Estimated GFR (MDRD) 183 (>89) Glucose 91 (70-100) mg/dL Calcium 8.8 (8.5-10.3) mg/dL Total Bilirubin 0.4 (0.2-1.0) mg/dL AST 21 (10-42) IU/L ALT 15 (10-60) IU/L Alkaline Phosphatase 160 H (42-121) IU/L Total Protein 6.6 L (6.7-8.2) g/dL Albumin 2.7 L (3.2-5.5) g/dL Globulin 3.9 (2.1-4.2) g/dL Albumin/Globulin Ratio 0.7 L (1.0-2.2) Urine Creatinine mg/dL Ur Total Protein Timed mg/dL Protein/Creatinin Ratio (<=0.2) Membranes Rupture (NEGATIVE) Chlam trachomat DNA PCR NEGATIVE (NEGATIVE) N.gonorrhoeae DNA (PCR) NEGATIVE (NEGATIVE) T. vaginalis (PCR) NEGATIVE (NEGATIVE) Blood Type Antibody Screen 08/27/19 08/27/19 Range/Units 12:04 11:55 WBC (4.8-10.8) x10^3/uL RBC (4.20-5.40) 10^6/uL Hgb (12.0-16.0) g/dL Hct (37.0-47.0) % MCV (81.0-99.0) fL MCH (27.0-31.0) pg MCHC (32.0-36.0) g/dL RDW (12.0-15.0) % Plt Count (130-450) 10^3/uL MPV (7.9-10.8) fL Neut # (Auto) (1.5-6.6) 10^3/uL Lymph # (Auto) (1.5-3.5) 10^3/uL [place] # (Auto) (0.0-1.0) 10^3/uL Eos # (Auto) (0.0-0.7) 10^3/uL Baso # (Auto) (0.0-0.1) 10^3/uL Absolute Nucleated RBC x10^3/uL Nucleated RBC % /100WBC Sodium (135-145) mmol/L Potassium (3.5-5.0) mmol/L Chloride (101-111) mmol/L Carbon Dioxide (21-32) mmol/L Anion Gap (6-13) BUN (6-20) mg/dL Creatinine (0.4-1.0) mg/dL Estimated GFR (MDRD) (>89) Glucose (70-100) mg/dL Calcium (8.5-10.3) mg/dL Total Bilirubin (0.2-1.0) mg/dL AST (10-42) IU/L ALT (10-60) IU/L Alkaline Phosphatase (42-121) IU/L Total Protein (6.7-8.2) g/dL Albumin (3.2-5.5) g/dL Globulin (2.1-4.2) g/dL Albumin/Globulin Ratio (1.0-2.2) Urine Creatinine 127.7 mg/dL Ur Total Protein Timed 130 mg/dL Protein/Creatinin Ratio 1.0 H (<=0.2) Membranes Rupture (NEGATIVE) Chlam trachomat DNA PCR (NEGATIVE) N.gonorrhoeae DNA (PCR) (NEGATIVE) T. vaginalis (PCR) (NEGATIVE) Blood Type O POSITIVE Antibody Screen NEGATIVE Assessment/Plan - Problem List (3) Normal vaginal delivery Impression: 34yo P6 PPD #0 s/p at term. --Protienuria P:C 1.0. Normal AST, ALT, Cr. One elevated BP . Had MERCADO immediately post delivery that resolved with toradol. Currently no MERCADO, visual changes, or upper abd pain. Continue to monitor for preeclampsia. --Bradycardia with HR last night in high 40s. EKG today is normal except for bradycardia ; no comparison available. No chest pain or SOB. Continue to monitor. Hospitalist recommends outpatient echo. Likely hyperdynamic changes after multiple pregnancies and recent . --Small delayed hemorrhage resolved with hemabate. Now scant bleeding. --No flu vax or Tdap in , is OK with receiving --Otherwise anticipate normal PP course. Eating, ambulating, urinating well. Wants to breast and bottle feed but doesn't try for long before asking for a bottle. Very experienced mom and encouraged collostrum consumption but we will not push exclusively. Fundus firm and 1cm above the umbilicus which is her baseline. Nontender. LE with 1+ edema non pitting bilaterally.
[2019-08-28] MEDS ORDERED: DOCUSATE SODIUM 100 MG CAPSULE PO SCH (09:00)
[2019-08-28] MEDS: SIMETHICONE CHEW 80 MG TABLET PO SCH (18:12)
[2019-08-28] MEDS ORDERED: IBUPROFEN 600 MG TABLET PO SCH (21:29)
[2019-08-29] MEDS: ACETAMINOPHEN 500 MG TABLET PO SCH (04:45)
[2019-08-29] MEDS: SIMETHICONE CHEW 80 MG TABLET PO SCH (10:07)
--- NOTE | 2019-08-29 11:11 | PROVIDER PROGRESS NOTE ---
Subjective - Prog Note Date Prog Note Date: 08/29/19 Prog Note Time: 11:09 - Subjective Pt reports feeling: Improved (interview with adult basic studies teacher #[id number]. Pain 6/10. however states her pain contol is good. she is breast feeding and suplimenting with formula.) Objective - Vital Signs/Intake & Output Reviewed Vital Signs: Yes Vital Signs: Vital Signs x48h Temp Pulse Resp BP Pulse Ox 08/29/19 08:25 37.0 C 79 14 110/63 96 Intake & Output: Intake & Output 08/26/19 08/27/19 08/28/19 08/29/19 23:59 23:59 23:59 23:59 Intake Total 437.484 2188 Output Total 200 Balance 407.499 -200 1200 - Objective General Appearance: positive: No acute distress, Alert Respiratory: positive: Chest non-tender, No respiratory distress, Breath sounds nml Cardiovascular: positive: Regular rate & rhythm, No murmur, No gallop Abdomen: positive: Non-tender, Nml bowel sounds, Mass (U-2) Back: negative: CVA tenderness (R), CVA tenderness (L) Extremities: negative: Calf tenderness, Fe's sign/cords Neurologic/Psychiatric: positive: Oriented x3 - Lab Results Fish Bones: 08/28/19 03:25 08/28/19 03:25 Assessment/Plan - Problem List (2) Normal vaginal delivery Impression: doing well. Pt notes pain 6/10 but is smiling, moving easly, conversing with out difficulty. offered pain pill for discharge and denies need. requests only Stool and gas pills. reviewed breast feeding. advantages and signs of infection. told breast feeding is not acquit contraception. Pt wants contraception with out hormones. offered paragard. RTC one week Discharge medication colace 100 mg simeticone 80 mg
--- NOTE | 2019-08-29 11:27 | Discharge Plan ---
Discharge Plan Problem Reviewed?: Yes Disposition: Home, Self Care Condition: Good Diet: Regular Activity Restrictions: pelvic rest 6 weeks Shower Restrictions: No Driving Restrictions: No No Smoking: If you smoke, Please STOP! Call for help.
--- NOTE | 2019-08-29 12:24 | DISCHARGE SUMMARY ---
Physician: Torrey Austin MD DATE OF ADMISSION: 08/27/2019 DATE OF DISCHARGE: 08/29/2019 ADMITTING DIAGNOSES: 1. A 34-year-old G6, P5 female. 2. Group B strep positive. 3. Headache. DISCHARGE DIAGNOSES: 1. A 36-year-old G6, P5 female. 2. Group B streptococcus positive. 3. Spontaneous vaginal delivery. 4. Proteinuria. PROCEDURES: 1. Magnesium sulfate. 2. Augmentation. 3. Artificial rupture of membranes. 4. Nitrous oxide. 5. Spontaneous vaginal delivery. PRESENTING HISTORY: The patient is a 34-year-old G6, P5 female at 39.5 weeks, consistent with 20-week ultrasound. She presented with strong uterine contractions. She is noted to have a vaginal dischar ge, which is clear to white. She had a nonstress test which was reactive. She was noted to be group B strep positive and thus was administered IV antibiotics. Upon presenting, she was noted to have l eft-sided headache as well as some right-sided abdominal discomfort. For this reason, she received P labs, which were all normal with the exception of a protein-creatinine ratio of 1.0. Her blood pr essures were noted to be normal without evidence of any hypertension. LABORATORIES: CBC on admission showed a white count of 7.2, hemoglobin was 11.1, hematocrit was 34.0 , platelets were 224. Her CMP was normal with the exception of an elevated alkaline phosphatase. He r creatinine was noted to be 0.4. Her protein-creatinine ratio was 1.0. She had a negative ROM Plus . Her GC, chlamydia, gonorrhea tests were all negative. , her hemoglobin fell to 10.5, he matocrit was 32.9, platelets were 212. The remainder of her labs all remained within normal limits. HOSPITAL COURSE: The patient was admitted because of the proteinuria and headache. She was started on magnesium sulfate. Her blood pressures throughout were nonhypertensive and so for this reason, it was decided to discontinue her magnesium sulfate. Because of magnesium, her contractions seemed to w ane, and so she had Pitocin utilized for augmentation. As labor progressed, she was artificially rupt ured. She received nitrous oxide for labor analgesia. She had a spontaneous vaginal delivery, at wh ich time a live male infant was delivered over an intact perineum. The infant's Apgars were 8 and 9. Her course has been unremarkable. She is taking a regular diet. She has complained of some gas pain, but has needed minimal pain control at this particular time. She is being discharged to home. We have discussed the issues of contraception, mastitis, the advantages of an d its limited contraceptive value. She was requesting a nonhormonal form of contraception. I have s uggested the ParaGard. The interview was conducted with a radiator cleaner #[id number]. She was given a prescription for Colace as well as simethicone, and instructed to follow up in the office in one w kaw. TD: 08/29/2019 11:28
[2019-08-29 16:19] VITALS: BP 113/75
--- NOTE | 2019-08-29 19:50 | Labor Flowsheet ---
Labor Flowsheet Datetime Report Generated by CPN: 08/29/2019 19:50 Datetime: 08/28/2019 12:28 VITAL SIGNS NBP Sys/Susy/Mean (mmHg): 99 : 61 : 69 Pulse: 72 LaborFlag: Labor Datetime: 08/28/2019 06:14 SpO2 (%): 99 Datetime: 08/28/2019 03:45 Membranes Ruptured Date/Time: 08/28/2019 01:06 Datetime: 08/28/2019 03:07 Stage 2 Comments: Spontaneous del of placenta, Intact and routine discard Datetime: 08/28/2019 03:00 UTERINE ACTIVITY Monitor Mode: External Frequency (min): 1.5-3 Quality: Moderate Duration (sec): 40-90 Pattern: Normal: <= 5 Contractions in 10 Minutes Resting Tone (Palpate): Relaxed Pitocin Checklist: At Least 1 Acceleration of 15 bpm x 15 Seconds in 30 Minutes or Adequate Variabi lity; No More than 1 Late Deceleration Occurred in Past 30 Minutes; No More than 2 Variable Decelerat ions > 60 Seconds in Duration and decreasing >60 bpm in 30 minutes; No More than 5 Uterine Contractio ns in 10 Minutes for any 20 Minute Interval; Uterus Palpates Soft between Contractions ASSESSMENT A Monitor Mode: Telemetry FHR Baseline Rate : 140 Variability: Moderate 6-25 bpm Accelerations: 15X15 Decelerations: Early Category: Category I Oxygen Method: Room Air STAGE 2 Pushing: Involuntary Pushing Pushing Progress: Descent with Pushing Datetime: 08/28/2019 02:54 VAGINAL EXAM Dilatation (cm): 9.0 Exam by: M. [place] RN Datetime: 08/28/2019 02:48 Pain Coping: Writhing Pain Assessment Comments: Pt requesting epidural Datetime: 08/28/2019 02:43 Patient Position/Activity: Left Tilt; Semi-Fowlers Datetime: 08/28/2019 02:42 Patient Care Comments: 200ml UO Datetime: 08/28/2019 02:22 Monitor Interventions for UA: [place] Adjusted Datetime: 08/28/2019 02:17 Vaginal Exam Comments: same VE Datetime: 08/28/2019 01:51 Monitor Interventions for FHR: Ultrasound Adjusted Datetime: 08/28/2019 01:45 Temperature (C): 36.6 Datetime: 08/28/2019 01:40 I/O Interventions: Up to BR Datetime: 08/28/2019 01:37 Vaginal Bleeding: None Cervix, Consistency: Soft Datetime: 08/28/2019 01:36 Vital Sign Comments: Pt in severe pain. Tensing during BP check Datetime: 08/28/2019 01:07 Effacement (%): 75 Station: -2 Datetime: 08/28/2019 01:06 Membrane Status: Ruptured Membranes Rupture Method: Artificial Amniotic Fluid Color: Clear Amniotic Fluid Amount: Moderate Amniotic Fluid Odor: Normal Datetime: 08/28/2019 00:47 Comments: US low on battery. Replaced with new US monitor. Datetime: 08/28/2019 00:30 Cervix, Position: Midposition Datetime: 08/28/2019 00:18 MEDICATIONS Pitocin (milliunits): Increased to @ 9 Datetime: 08/27/2019 23:45 PAIN Pain Scale: 9 Pain Presence: Intermittent Pain Type: Contraction Pain Location: Abdomen Pain Relief Measures: Comfort Measures Datetime: 08/27/2019 23:00 FHR Baseline Changes: Tachycardia Datetime: 08/27/2019 22:42 Comfort Measures: Breathing/Relaxation Datetime: 08/27/2019 21:15 COMMUNICATION Communication Comments: MD wants pt to be checked hourly. Datetime: 08/27/2019 19:51 Magnesium/Antihypertensives: Magnesium Sulfate Discontinued Medication Comments: Mag D/C'd per MD Datetime: 08/27/2019 19:41 MATERNAL ASSESSMENT Level of Consciousness: Fully Conscious DTR's/Clonus: DTRs 2+ Headache: Denies Breath Sounds, Left: Clear and Equal Breath Sounds, Right: Clear and Equal Nausea/Vomiting: Denies RUQ Epigastric Pain: Denies Datetime: 08/27/2019 19:00 Stage of : Labor Antibiotics: Ampicillin IV 1 Gm Datetime: 08/27/2019 18:09 Medications: Pitocin Datetime: 08/27/2019 15:30 ROM Test Kit: Negative PATIENT CARE IV/Blood Work: IV Started; IV Infusing per Order TEACHING Instructional Method: Via [employer] Teacher Plan of Care: Plan of Care Discussed
== END 2019-08-29 19:15 | disposition home or self-care (01) | DRG 806 ==
LOC: WFO 11:14 → FBP 11:17 → WFO 14:38 → FBP 14:39
PROVIDERS: ADMIT Obstetrics & Gynecology; ATTEND Obstetrics & Gynecology
PROC: 10E0XZZ Delivery of Products of Conception, External Approach (ICD-10-PCS; principal; 2019-08-28)
PROC: 10907ZC Drainage of Amniotic Fluid, Therapeutic from Products of Conception, Via Natural or Artificial Opening (ICD-10-PCS; 2019-08-28)
DX: O12.13 Gestational proteinuria, third trimester (principal); O72.2 Delayed and secondary postpartum hemorrhage; Z37.0 Single live birth; O99.824 Streptococcus B carrier state complicating childbirth; Z3A.39 39 weeks gestation of pregnancy; O77.0 Labor and delivery complicated by meconium in amniotic fluid; R51 Headache; R10.11 Right upper quadrant pain; Z23 Encounter for immunization; O99.89 Other specified diseases and conditions complicating pregnancy, childbirth and the puerperium; R00.1 Bradycardia, unspecified
CPT/HCPCS: 36415; 80053; 82570; 84112; 84156; 85025; 86850; 86900; 86901; 87491; 87591; 87661; 90686; 90715; 93005; 99213; A9270; J7120